=== PATIENT | male | born 1980 | race Caucasian/White ===

== ENCOUNTER 2022-10-02 15:18 | Inpatient (IN) | payer OTHER ==
[2022-10-02 16:58] VITALS: BMI 24.2
[2022-10-02] MEDS ORDERED: NICOTINE 10 MG CARTRIDGE (INHALER) IH PRN (18:51)
[2022-10-02] MEDS ORDERED: LOPERAMIDE HCL 2 MG CAPSULE PO PRN (18:51)
[2022-10-02] MEDS ORDERED: IBUPROFEN 400 MG TABLET (FP) PO PRN (18:51)
[2022-10-02] MEDS ORDERED: P-EPHED 60MG/TRIPROLIDI 2.5MG TABLET PO PRN (18:51)
[2022-10-02] MEDS ORDERED: NICOTINE POLACRILEX 2 MG GUM BUC PRN (18:51)
[2022-10-02] MEDS ORDERED: BENZONATATE 200 MG CAPSULE PO PRN (18:51)
[2022-10-02] MEDS ORDERED: MAGNESIUM HYDROX 2400MG/30ML ORAL SUSPENSION 30 ML CUP PO PRN (18:51)
[2022-10-02] MEDS ORDERED: BENZOCAINE/MENTHOL (CHLORASEPTIC ) LOZENGE MM PRN (18:51)
[2022-10-02] MEDS ORDERED: DICYCLOMINE HCL 10 MG CAPSULE PO PRN (18:51)
[2022-10-02] MEDS ORDERED: POLYETHYLENE GLYCOL (HEALTHYLAX) 3350 17 GM PACKET PO PRN (18:51)
[2022-10-02] MEDS ORDERED: levETIRAcetam 500 MG TABLET (FP) PO ONE ×2 (18:51→19:09)
[2022-10-02] MEDS ORDERED: ONDANSETRON *ODT* 4 MG TABLET SL PRN (18:51)
[2022-10-02] MEDS ORDERED: MAG HYDROX/AL HYDROX/SIMETH 30 ML UNIT-DOSE CUP PO PRN (18:51)
[2022-10-02] MEDS ORDERED: BISMUTH SUBSALICYLATE 524 MG/30 ML PO PRN (18:51)
[2022-10-02] MEDS ORDERED: IBUPROFEN 600 MG TABLET (FP) PO PRN (18:51)
[2022-10-02] MEDS ORDERED: ACETAMINOPHEN 325 MG TABLET (FP) PO PRN (18:51)
[2022-10-02] MEDS ORDERED: guaiFENesin 600 MG TABLET.ER (FP) PO PRN (18:51)
[2022-10-02] MEDS ORDERED: chlordiazePOXIDE HCL 25 MG CAPSULE PO ONE (18:53)
[2022-10-02] MEDS ORDERED: chlordiazePOXIDE HCL 25 MG CAPSULE PO PRN (18:53)
[2022-10-02] MEDS ORDERED: chlordiazePOXIDE HCL 25 MG CAPSULE ONE (19:10)
[2022-10-03] MEDS: levETIRAcetam 500 MG TABLET (FP) PO SCH ×3 (01:42→22:49)
[2022-10-03] MEDS: THIAMINE HCL 100 MG TABLET (FP) PO SCH ×2 (01:42→22:50)
[2022-10-03] MEDS: chlordiazePOXIDE HCL 25 MG CAPSULE PO SCH ×5 (01:42→22:50)
[2022-10-03] MEDS: PRENATAL VITAMINS W/ FOLIC ACID TABLET (FP) PO SCH (10:37)
[2022-10-03 11:32] LABS: HEMATOCRIT 32.6 % (35.4-49); HEMOGLOBIN 11.4 GM/dL (11.7-16.9); MCH 34.3 pg (25.7-33.7); MCHC 34.8 g/dl (32.0-35.9); MEAN CELL VOLUME 98.4 fl (80-96); MEAN PLT VOLUME 8.5 fl (7.5-11.1); PLATELET COUNT 381 10^3/uL (134-434); RBC 3.32 M/mm3 (4.00-5.60); WHITE BLOOD COUNT 5.9 K/mm3 (4.0-10.0)
[2022-10-03 11:59] LABS: CALCIUM 8.9 mg/dL (8.5-10.1)
[2022-10-03 12:00] LABS: ALBUMIN 2.7 g/dl (3.4-5.0); BLOOD UREA NITROGEN 7.4 mg/dL (7-18)
[2022-10-03 12:02] LABS: CREATININE 0.6 mg/dL (0.55-1.3)
[2022-10-03 12:04] LABS: BILIRUBIN,TOTAL 0.5 mg/dL (0.2-1); TOT PROT 6.3 g/dl (6.4-8.2)
[2022-10-03] MEDS: MELATONIN 5 MG TABLETS PO PRN (22:50)
[2022-10-04] MEDS: chlordiazePOXIDE HCL 25 MG CAPSULE PO SCH ×4 (05:55→22:47)
[2022-10-04] MEDS: levETIRAcetam 500 MG TABLET (FP) PO SCH ×2 (11:48→22:46)
[2022-10-04] MEDS: PRENATAL VITAMINS W/ FOLIC ACID TABLET (FP) PO SCH (11:48)
[2022-10-04] MEDS: THIAMINE HCL 100 MG TABLET (FP) PO SCH (22:46)
[2022-10-04] MEDS: MELATONIN 5 MG TABLETS PO PRN (22:48)
[2022-10-05] MEDS ORDERED: chlordiazePOXIDE HCL 10 MG CAPSULE PO PRN
[2022-10-05] MEDS: chlordiazePOXIDE HCL 10 MG CAPSULE PO SCH ×4 (05:45→22:39)
[2022-10-05] MEDS: levETIRAcetam 500 MG TABLET (FP) PO SCH ×2 (10:25→22:39)
[2022-10-05] MEDS: PRENATAL VITAMINS W/ FOLIC ACID TABLET (FP) PO SCH (10:25)
[2022-10-05] MEDS: THIAMINE HCL 100 MG TABLET (FP) PO SCH (22:39)
[2022-10-05] MEDS: MELATONIN 5 MG TABLETS PO PRN (22:39)
[2022-10-06] MEDS: chlordiazePOXIDE HCL 10 MG CAPSULE PO SCH ×2 (05:35→17:40)
[2022-10-06] MEDS: PRENATAL VITAMINS W/ FOLIC ACID TABLET (FP) PO SCH (10:45)
[2022-10-06] MEDS: levETIRAcetam 500 MG TABLET (FP) PO SCH ×2 (10:45→22:09)
[2022-10-06] MEDS: MELATONIN 5 MG TABLETS PO PRN (22:09)
[2022-10-06] MEDS: THIAMINE HCL 100 MG TABLET (FP) PO SCH (22:10)
[2022-10-07] MEDS ORDERED: chlordiazePOXIDE HCL 10 MG CAPSULE PO ONE (05:00)
[2022-10-07 09:21] VITALS: BP 97/64; PULSE 64; RESP 16; TEMP 97.6
[2022-10-07] MEDS: PRENATAL VITAMINS W/ FOLIC ACID TABLET (FP) PO SCH (10:30)
[2022-10-07] MEDS: levETIRAcetam 500 MG TABLET (FP) PO SCH (10:30)
== END 2022-10-07 12:30 | disposition other institution (70) | DRG 775 ==
LOC: YASAS 15:18 → Y6N 19:28
PROVIDERS: ADMIT Allergy & Immunology; ATTEND Surgery
PROC: HZ2ZZZZ Detoxification Services for Substance Abuse Treatment (ICD-10-PCS; principal; 2022-10-02)
DX: F10.230 Alcohol dependence with withdrawal, uncomplicated (principal); F17.210 Nicotine dependence, cigarettes, uncomplicated; R56.9 Unspecified convulsions; M79.604 Pain in right leg; S80.11XA Contusion of right lower leg, initial encounter; W19.XXXA Unspecified fall, initial encounter; Y92.9 Unspecified place or not applicable; Z28.310 Unvaccinated for COVID-19; Z28.9 Immunization not carried out for unspecified reason
CPT/HCPCS: 36415; 80053; 85027; 86780; C9803-CS; U0003; U0005

== ENCOUNTER 2022-10-02 20:21 | Emergency (ER) | payer OTHER ==
[2022-10-02 20:34] VITALS: BP 114/79; PULSE 79; RESP 18; TEMP 97.6; BMI 25.0
== END 2022-10-03 01:15 | disposition home or self-care (01) ==
LOC: JER 20:21
DX: S80.11XA Contusion of right lower leg, initial encounter (principal); X58.XXXA Exposure to other specified factors, initial encounter
CPT/HCPCS: 70450-TC; 73590-TC-RT-FY; 73610-TC-RT-FY; 73700-TC-RT; 99284-25

== ENCOUNTER 2022-10-07 12:41 | Inpatient (IN) | payer OTHER ==
[2022-10-07] MEDS ORDERED: LOPERAMIDE HCL 2 MG CAPSULE PO PRN (15:19)
[2022-10-07] MEDS ORDERED: MAGNESIUM HYDROX 2400MG/30ML ORAL SUSPENSION 30 ML CUP PO PRN (15:19)
[2022-10-07] MEDS ORDERED: NALOXONE HCL (KLOXXADO) 8 MG SPRAY NS PRN (15:19)
[2022-10-07] MEDS ORDERED: IBUPROFEN 400 MG TABLET (FP) PO PRN (15:19)
[2022-10-07] MEDS ORDERED: hydrOXYzine PAMOATE 25 MG CAPSULE (FP) PO PRN (15:19)
[2022-10-07] MEDS ORDERED: BENZOCAINE/MENTHOL (CHLORASEPTIC ) LOZENGE MM PRN (15:19)
[2022-10-07] MEDS ORDERED: MAG HYDROX/AL HYDROX/SIMETH 30 ML UNIT-DOSE CUP PO PRN (15:19)
[2022-10-07] MEDS ORDERED: NALOXONE HCL 0.4 MG/ML VIAL IVPUSH PRN (15:19)
[2022-10-07] MEDS ORDERED: BENZONATATE 200 MG CAPSULE PO PRN (15:19)
[2022-10-07] MEDS ORDERED: METHOCARBAMOL 500 MG TABLET PO PRN (15:19)
[2022-10-07] MEDS ORDERED: IBUPROFEN 600 MG TABLET (FP) PO PRN (15:19)
[2022-10-07] MEDS ORDERED: guaiFENesin 600 MG TABLET.ER (FP) PO PRN (15:19)
[2022-10-07] MEDS ORDERED: ACETAMINOPHEN 325 MG TABLET (FP) PO PRN (15:19)
[2022-10-07] MEDS ORDERED: POLYETHYLENE GLYCOL (HEALTHYLAX) 3350 17 GM PACKET PO PRN (15:19)
[2022-10-07] MEDS: MELATONIN 5 MG TABLETS PO SCH (21:06)
[2022-10-07] MEDS: levETIRAcetam 500 MG TABLET (FP) PO SCH (21:06)
[2022-10-07] MEDS: THIAMINE HCL 100 MG TABLET (FP) PO SCH (21:06)
[2022-10-08] MEDS: PRENATAL VITAMINS W/ FOLIC ACID TABLET (FP) PO SCH (09:33)
[2022-10-08] MEDS: levETIRAcetam 500 MG TABLET (FP) PO SCH ×2 (09:33→21:02)
[2022-10-08] MEDS: THIAMINE HCL 100 MG TABLET (FP) PO SCH (21:01)
[2022-10-08] MEDS: MELATONIN 5 MG TABLETS PO SCH (21:01)
[2022-10-09] MEDS: levETIRAcetam 500 MG TABLET (FP) PO SCH ×2 (10:06→21:14)
[2022-10-09] MEDS: PRENATAL VITAMINS W/ FOLIC ACID TABLET (FP) PO SCH (10:06)
[2022-10-09] MEDS: BACITRACIN 0.9 GM PACKET TP SCH (21:14)
[2022-10-09] MEDS: THIAMINE HCL 100 MG TABLET (FP) PO SCH (21:14)
[2022-10-09] MEDS: MELATONIN 5 MG TABLETS PO SCH (21:14)
[2022-10-10] MEDS: levETIRAcetam 500 MG TABLET (FP) PO SCH ×2 (09:53→21:17)
[2022-10-10] MEDS: BACITRACIN 0.9 GM PACKET TP SCH ×2 (09:53→21:17)
[2022-10-10] MEDS: PRENATAL VITAMINS W/ FOLIC ACID TABLET (FP) PO SCH (09:53)
[2022-10-10] MEDS: MELATONIN 5 MG TABLETS PO SCH (21:16)
[2022-10-10] MEDS: THIAMINE HCL 100 MG TABLET (FP) PO SCH (21:17)
[2022-10-11] MEDS: BACITRACIN 0.9 GM PACKET TP SCH ×2 (10:10→21:04)
[2022-10-11] MEDS: PRENATAL VITAMINS W/ FOLIC ACID TABLET (FP) PO SCH (10:10)
[2022-10-11] MEDS: levETIRAcetam 500 MG TABLET (FP) PO SCH ×2 (10:11→21:04)
[2022-10-11] MEDS: MELATONIN 5 MG TABLETS PO SCH (21:04)
[2022-10-11] MEDS: THIAMINE HCL 100 MG TABLET (FP) PO SCH (21:04)
[2022-10-12] MEDS: levETIRAcetam 500 MG TABLET (FP) PO SCH ×2 (09:28→21:29)
[2022-10-12] MEDS: PRENATAL VITAMINS W/ FOLIC ACID TABLET (FP) PO SCH (09:28)
[2022-10-12] MEDS: BACITRACIN 0.9 GM PACKET TP SCH ×2 (09:28→21:29)
[2022-10-12] MEDS: MELATONIN 5 MG TABLETS PO SCH (21:29)
[2022-10-12] MEDS: THIAMINE HCL 100 MG TABLET (FP) PO SCH (21:29)
[2022-10-13] MEDS: levETIRAcetam 500 MG TABLET (FP) PO SCH ×2 (10:12→21:52)
[2022-10-13] MEDS: BACITRACIN 0.9 GM PACKET TP SCH ×2 (10:12→23:10)
[2022-10-13] MEDS: PRENATAL VITAMINS W/ FOLIC ACID TABLET (FP) PO SCH (10:12)
[2022-10-13] MEDS: MELATONIN 5 MG TABLETS PO SCH (21:53)
[2022-10-13] MEDS: THIAMINE HCL 100 MG TABLET (FP) PO SCH (21:53)
[2022-10-14] MEDS: PRENATAL VITAMINS W/ FOLIC ACID TABLET (FP) PO SCH (09:37)
[2022-10-14] MEDS: BACITRACIN 0.9 GM PACKET TP SCH ×2 (09:37→21:47)
[2022-10-14] MEDS: levETIRAcetam 500 MG TABLET (FP) PO SCH ×2 (09:37→21:47)
[2022-10-14] MEDS: THIAMINE HCL 100 MG TABLET (FP) PO SCH (21:47)
[2022-10-14] MEDS: MELATONIN 5 MG TABLETS PO SCH (21:47)
[2022-10-15] MEDS: BACITRACIN 0.9 GM PACKET TP SCH ×2 (10:14→21:08)
[2022-10-15] MEDS: PRENATAL VITAMINS W/ FOLIC ACID TABLET (FP) PO SCH (10:14)
[2022-10-15] MEDS: levETIRAcetam 500 MG TABLET (FP) PO SCH ×2 (10:14→21:08)
[2022-10-15] MEDS: THIAMINE HCL 100 MG TABLET (FP) PO SCH (21:08)
[2022-10-15] MEDS: MELATONIN 5 MG TABLETS PO SCH (21:08)
[2022-10-16] MEDS: PRENATAL VITAMINS W/ FOLIC ACID TABLET (FP) PO SCH (10:23)
[2022-10-16] MEDS: BACITRACIN 0.9 GM PACKET TP SCH ×2 (10:23→21:42)
[2022-10-16] MEDS: levETIRAcetam 500 MG TABLET (FP) PO SCH ×2 (10:23→21:42)
[2022-10-16] MEDS: MELATONIN 5 MG TABLETS PO SCH (21:42)
[2022-10-16] MEDS: THIAMINE HCL 100 MG TABLET (FP) PO SCH (21:42)
[2022-10-17] MEDS: levETIRAcetam 500 MG TABLET (FP) PO SCH ×2 (09:45→22:10)
[2022-10-17] MEDS: BACITRACIN 0.9 GM PACKET TP SCH ×2 (09:45→22:10)
[2022-10-17] MEDS: PRENATAL VITAMINS W/ FOLIC ACID TABLET (FP) PO SCH (09:45)
[2022-10-17] MEDS: THIAMINE HCL 100 MG TABLET (FP) PO SCH (22:09)
[2022-10-17] MEDS: MELATONIN 5 MG TABLETS PO SCH (22:10)
[2022-10-18] MEDS: PRENATAL VITAMINS W/ FOLIC ACID TABLET (FP) PO SCH (10:58)
[2022-10-18] MEDS: levETIRAcetam 500 MG TABLET (FP) PO SCH ×2 (10:58→21:45)
[2022-10-18] MEDS: BACITRACIN 0.9 GM PACKET TP SCH ×2 (10:58→21:45)
[2022-10-18] MEDS: MELATONIN 5 MG TABLETS PO SCH (21:45)
[2022-10-18] MEDS: THIAMINE HCL 100 MG TABLET (FP) PO SCH (21:45)
[2022-10-19] MEDS: PRENATAL VITAMINS W/ FOLIC ACID TABLET (FP) PO SCH (09:42)
[2022-10-19] MEDS: BACITRACIN 0.9 GM PACKET TP SCH ×2 (09:42→21:54)
[2022-10-19] MEDS: levETIRAcetam 500 MG TABLET (FP) PO SCH ×2 (09:42→21:54)
[2022-10-19] MEDS: THIAMINE HCL 100 MG TABLET (FP) PO SCH (21:53)
[2022-10-19] MEDS: MELATONIN 5 MG TABLETS PO SCH (21:54)
[2022-10-20] MEDS: levETIRAcetam 500 MG TABLET (FP) PO SCH ×2 (10:26→21:06)
[2022-10-20] MEDS: BACITRACIN 0.9 GM PACKET TP SCH ×2 (10:26→21:06)
[2022-10-20] MEDS: PRENATAL VITAMINS W/ FOLIC ACID TABLET (FP) PO SCH (10:26)
[2022-10-20] MEDS: THIAMINE HCL 100 MG TABLET (FP) PO SCH (21:06)
[2022-10-20] MEDS: MELATONIN 5 MG TABLETS PO SCH (21:06)
[2022-10-21 07:15] VITALS: BP 112/58; PULSE 68; RESP 18; TEMP 97.1
[2022-10-21] MEDS: BACITRACIN 0.9 GM PACKET TP SCH (09:55)
[2022-10-21] MEDS: PRENATAL VITAMINS W/ FOLIC ACID TABLET (FP) PO SCH (09:55)
[2022-10-21] MEDS: levETIRAcetam 500 MG TABLET (FP) PO SCH (09:55)
== END 2022-10-21 10:06 | disposition home or self-care (01) | DRG 772 ==
LOC: YASAS 12:41 → Y3W 12:42
PROVIDERS: ADMIT Allergy & Immunology; ATTEND Psychiatry & Neurology Pain Medicine
PROC: HZ42ZZZ Group Counseling for Substance Abuse Treatment, Cognitive-Behavioral (ICD-10-PCS; principal; 2022-10-07)
DX: F10.20 Alcohol dependence, uncomplicated (principal); F17.210 Nicotine dependence, cigarettes, uncomplicated; R56.9 Unspecified convulsions; R60.0 Localized edema; M79.661 Pain in right lower leg; W19.XXXD Unspecified fall, subsequent encounter
CPT/HCPCS: 36415; 80177; 82140; 86803